=== PATIENT | female | born 1975 | race Caucasian/White ===

== ENCOUNTER → 2019-01-24 | Day surgery (SDC) | payer BC ==
[~2019-01-24] MED LIST: Buffered Lidocaine 1% SYRIN* 1 ML/SYRINGE INTRADERM ONE; Bupivacaine 0.5% W/EPI SDV* 30 ML VIAL ONE; Dexamethasone IV* 4 MG/ML 1 ML (4 MG) IV SLOW PU ONE; Dexamethasone IV* 4 MG/ML 1 ML (4 MG) ONE; DiMENhydriNATE IV* 50 MG/ML VIAL IV PUSH PRN; Famotidine IV* 10 MG/ML 2 ML (20 mg) IV ONE; Famotidine IV* 10 MG/ML 2 ML (20 mg) ONE; Lactated Ringers 1000 ML Bag* 1,000 ML IV SCH; Methylene Blue 0.5 %* 50 MG/10 ML AMP IV ONE; Midazolam* 1 MG/ML 2 ML VIAL (2 MG) ONE; Naloxone* 0.4 MG/ML 1 ML VIAL IV PRN; Rocuronium* 10 MG/ML VIAL ONE; fentaNYL* 50 MCG/ML 2 ML VIAL (100 MCG VIAL) ONE
[2019-01-24] MEDS: fentaNYL* 50 MCG/ML 2 ML VIAL (100 MCG VIAL) IV PRN ×2 (11:51→11:56)
[2019-01-24 12:32] VITALS: BP 118/65
--- NOTE | 2019-01-24 13:07 | OP ---
OPERATIVE REPORT: DATE OF OPERATION: 01/24/19 DATE OF : 79 SURGEON: Corona Larson MD. WET MACHINE CUTTER: None. ANESTHESIA: General endotracheal tube. PRE-OP DIAGNOSIS: Infertility. POST-OP DIAGNOSES: Infertility plus endometriosis. OPERATIVE PROCEDURE: Diagnostic laparoscopy, cautery of endometriosis. ESTIMATED BLOOD LOSS: Minimal. SPECIMENS: None. FINDINGS: There was stage I endometriosis; otherwise, the pelvis appeared normal. There was good spi ll on the left side, but no observed spill on the right. On exam under anesthesia, the cervix, vagin a, and vulva appeared normal. The anterior bladder flap appeared normal. The cul-de-sac contained o n the left side 2 endometrial implants that were approximately 2 to 3 mm each. One was more powder b urn up by the ovarian ligament and down along the uterosacral ligament, there was a small yellow patc h of endometriosis. Both ovaries appeared normal. The left ovary contained a corpus luteum cyst. B oth fimbria appeared normal and the tubes appeared normal. Tubes were seen to distend with blue dye both of them, but only spill was seen on the left. Liver surface and gallbladder appeared normal. DESCRIPTION OF PROCEDURE: The patient identified, procedure identified as a diagnostic laparoscopy. The patient was taken to the operating room, prepped and draped in the usual fashion in the dorsal l ithotomy position under general anesthesia. A single-tooth tenaculum was placed on the anterior lip of the cervix. The cervix was easily dilated up to a #19 Jose dilator and the cannula was placed. A s mall infraumbilical incision was made and a Veress needle was inserted through this. The abdomen was then insufflated to 15 mmHg, Veress needle was removed, and the trocar were inserted. The above fin dings were noted. A second trocar was placed under direct visualization 2 cm above the pubic symphys is and a third trocar was placed on the left abdominal sidewall. Using unipolar cautery at 30 Coag, the small areas of implant along the broad ligament were cauterized. All instruments were removed fr om the abdomen. The abdomen was deflated of CO2. All instruments were removed from the vagina and t he patient returned to the recovery room in stable condition. [id number] #: [id number]
== END | disposition home or self-care (01) ==
LOC: OR 08:52
PROVIDERS: ATTEND Obstetrics & Gynecology
DX: N97.9 Female infertility, unspecified (principal); N80.3 Endometriosis of pelvic peritoneum; N88.2 Stricture and stenosis of cervix uteri; Z87.891 Personal history of nicotine dependence; F41.8 Other specified anxiety disorders
CPT/HCPCS: 81025; J1100; J2250; J3010